=== PATIENT | male | born 1950 | race Caucasian/White ===

== ENCOUNTER 2022-11-20 22:27 | Inpatient (IN) | payer OTHER ==
[2022-11-20] MEDS ORDERED: NOREPINEPHRINE BITARTRATE/D5W 4 MG/250 ML BAG IV ONE (22:49)
[2022-11-20] MEDS ORDERED: NA CHLORIDE 0.9% 1,000 ML ONE (23:03)
[2022-11-20 23:08] LABS: Absolute Lymphocytes (CBC) 4.1 K/uL (0.7-4.9); Hematocrit 28.5 % (39.6-49.0); Lymphocytes % 42.4 % (15.3-44.8); MCV 101.5 fL (80-100); Protime INR 1.87; RBC Red Blood Cell Count 2.81 M/uL (4.33-5.43)
[2022-11-20] MEDS ORDERED: LIDOCAINE HCL JELLY 2% 6 ML SYRINGE TOP ONE (23:24)
[2022-11-20 23:34] LABS: Albumin 1.8 g/dL (3.4-5.0); Bilirubin Direct 0.2 mg/dL (0-0.2); Bilirubin Indirect, Calculated 0.2 mg/dL (0.2-0.8); Bilirubin Total 0.4 mg/dL (0.2-1.0); Magnesium 1.9 mg/dL (1.6-2.4); Potassium 3.8 mEq/L (3.5-5.1); Protein, Total 5.2 g/dL (6.4-8.2)
[2022-11-20 23:47] LABS: Blood Gas Oxyhemoglobin 97.5 % (94-97); Blood O2 Saturation 98.8 % (92-98.5)
--- NOTE | 2022-11-21 00:11 | EDPHYS ---
Physician Documentation [facility] Name: Wero Bardales Jr Age: 72 yrs Sex: Male : 1950 Arrival Date: 11/20/2022 Time: 22:27 Bed 4 Private MD: ED Physician Gabriel Maloney HPI: 11/20 23:05 This 72 yrs old Male presents to ER via EMS with complaints of CPR now with ROSC. sp3 23:05 72-year-old male with a history of hypertension, CHF, osteoporosis, prior kidney sp3 disease, skin cancer, renal mass now presents via EMS for syncope and unresponsiveness which led to CPR by bystander/family who then activated [facility]itent[facility] staff who activated EMS who started ACLS protocol and got ROSC presents to the ED intubated hypotensive and tachycardic. There was a total of 12 minutes of CPR by EMS and unknown total CPR time by bystanders. Patient received 2 rounds of epinephrine and no other cardiac/ACLS medications. No other history from EMS or bystanders or penitentiary available. History above is from prior encounter note in the EMR. Patient sees Dr. Saab for oncology. He was confirmed as a full code. History, physical and review of systems severely limited secondary to patient's state.. Historical: - Home Meds: 23:00 Unable to obtain [Active]; vc1 - PMHx: 23:00 Unable to Obtain; vc1 - PSHx: 23:00 Unable to Obtain; vc1 - Immunization history:: Unable to obtain. - Social history:: unknown. ROS: 23:07 Unable to obtain ROS due to obtunded state, patient is on ventilator. sp3 Exam: 23:07 Constitutional: The patient appears GCS is a 2T. No corneal reflexes noted. No sp3 purposeful movements noted. Pupils are dilated with minimal responsiveness at 4 mm. Lungs are coarse bilaterally. Heart sounds are normal and tachycardic. Skin is pale. Abdomen is nondistended. No significant skin rashes noted. Exam otherwise limited. 23:07 Abdomen/GI: Large surgical scars noted on the abdomen. Unknown prior surgery.. 23:07 Musculoskeletal/extremity: Intraosseous catheter in the left tibia placed by EMS.. 23:10 ECG was reviewed by the Attending Physician. EKG demonstrates 98 bpm with normal sp3 intervals, normal axis, widened QRS complex with incomplete right bundle branch block and ST elevations V1 through V4 with no reciprocal changes noted. No old EKG available. EKG performed rapidly during resuscitation and will be repeated. Vital Signs: 22:29 BP 64 / 48; Pulse 112; Resp 18 A; Temp 97(Ca); Pulse Ox 99% on 15 lpm ETT ambu; Weight vc1 40 kg (M); 23:00 BP 93 / 61; Pulse 95; Resp 18; Pulse Ox 99% ; vc1 23:15 BP 101 / 58 (auto/); Pulse 95 MON; Resp 18 A; Temp 96.6(Ca); Pulse Ox 99% on ETT vent; vc1 23:30 BP 87 / 69 (auto/); Pulse 87 MON; Resp 18 A; Temp 96.6(Ca); Pulse Ox 99% on ETT vent; vc1 23:45 BP 97 / 54 (auto/); Pulse 86 MON; Resp 18 A; Temp 95.8(Ca); Pulse Ox 100% on ETT vent; vc1 11/21 00:00 BP 104 / 64 (auto/); Pulse 93 MON; Resp 18 A; Temp 95.1(Ca); Pulse Ox 100% on ETT vent; vc1 00:15 BP 107 / 71 (auto/); Pulse 86 MON; Resp 18 A; Temp 95.1(Ca); Pulse Ox 100% on ETT vent; vc1 00:30 BP 116 / 91 (auto/); Pulse 97 MON; Resp 18 A; Temp 95.2(Ca); Pulse Ox 96% on ETT vent; vc1 00:45 BP 110 / 84 (auto/); Pulse 95 MON; Resp 18 A; Temp 95.1(Ca); Pulse Ox 98% on ETT vent; vc1 01:00 BP 126 / 80 (auto/); Pulse 115 MON; Resp 18 A; Temp 95.4(Ca); Pulse Ox 100% on ETT vent;vc1 01:15 BP 114 / 87 (auto/); Pulse 112 MON; Resp 18 A; Temp 95.7(Ca); Pulse Ox 100% on ETT vent;vc1 01:30 BP 118 / 75 (auto/); Pulse 115 MON; Resp 18 A; Temp 96.4(Ca); Pulse Ox 100% on ETT vent;vc1 01:45 BP 126 / 74 (auto/); Pulse 115 MON; Resp 19 A; Temp 96.6(Ca); Pulse Ox 100% on ETT vent;vc1 02:00 BP 121 / 82 (auto/); Pulse 112 AP; Resp 19 A; Temp 97.2(Ca); Pulse Ox 100% on ETT vent; vc1 02:15 BP 125 / 98 (auto/); Pulse 116 MON; Resp 20 A; Temp 97.4(Ca); Pulse Ox 100% on ETT vent;vc1 02:15 Life sustaining care withdrawn per family request vc1 Procedures: 00:04 Central Line: the site was prepped with Betadine, a triple lumen catheter was inserted, sp3 in the right internal jugular vein, in 2 attempts. placement was verified, by CXR, by blood return, the site was dressed with Tegaderm, using sterile technique, the patient tolerated the procedure, well. MDM: 11/20 23:01 Patient medically screened. sp3 23:12 Data reviewed: vital signs, nurses notes, EMS record, lab test result(s), EKG, sp3 radiologic studies. ED course: 72-year-old male with return of spontaneous circulation following witnessed collapse at [facility]. Patient has extensive past medical history including oncology history. Patient is a full code. Patient is currently on Levophed 5 mcg and normal saline with ventilatory support. All laboratory values, ABG, and chest x-ray are pending. A right internal jugular central venous catheter was placed by wy in sterile fashion using ultrasound guidance. We will attempt transfer to closest appropriate facility after initial review of laboratory values and further stabilization of patient.. 23:15 ED course: Chest x-ray reviewed after ET tube was pulled back to 23 cm at the teeth and sp3 right IJ placement. No pneumothorax is noted. IJ triple-lumen catheter is in appropriate position. There is mild cardiomegaly. Lungs otherwise clear for any infiltrates. There is no subdiaphragmatic air. No pleural effusion noted. No other bony abnormalities noted.. 23:45 ED course: Discussed with son who is now here. Patient is a DNR/DNI and penitentiary sp3 for some reason did not enforce dose or was not aware. If patient arrest again, we will not perform CPR. Laboratory values reviewed and demonstrate elevated troponin level and elevated BNP. I have discussed all of this with the patient's son who is power of transactional attorney and the current plan is to keep him on current treatment until family arrives tomorrow morning at which point the plan is most likely hospice with withdrawal of care. Patient is now having nonspecific movements and we will start propofol and increase Levophed as needed. There is also increased ectopy on the monitor and we will follow this as well.. 11/20 22:43 Order name: Basic Metabolic Panel; Complete Time: 23:39 11/20 22:43 Order name: CBC with Diff; Complete Time: 23:39 11/20 22:43 Order name: LFT's; Complete Time: 23:39 11/20 22:43 Order name: Magnesium; Complete Time: 23:39 11/20 22:43 Order name: NT PRO-BNP; Complete Time: 23:39 11/20 22:43 Order name: PT-INR; Complete Time: 23:44 11/20 22:43 Order name: Troponin HS; Complete Time: 23:39 11/20 22:57 Order name: Blood Culture Adult (2) [facility] 11/20 22:57 Order name: Lactate w/ 2H reflex if indic.; Complete Time: 23:56 [facility] 11/20 22:57 Order name: ABG; Complete Time: 23:56 [facility] 11/20 23:22 Order name: Creatine Phosphokinase; Complete Time: 23:39 EDGA 11/20 22:43 Order name: XRAY Chest (1 view) 11/20 22:43 Order name: EKG; Complete Time: 22:44 11/20 22:43 Order name: Cardiac monitoring; Complete Time: 22:50 11/20 22:43 Order name: EKG - Nurse/Tech; Complete Time: 22:49 11/20 22:43 Order name: IV Saline Lock; Complete Time: 22:50 11/20 22:43 Order name: Labs collected and sent; Complete Time: 22:50 11/20 22:43 Order name: O2 Per Protocol; Complete Time: 22:50 11/20 22:43 Order name: O2 Sat Monitoring; Complete Time: 22:50 Administered Medications: 11/21 03:19 Discontinued: Norepinephrine IV 0.1 mcg/kg/min IV at calculated rate every 5 minutes; kl (Standard concentration 4 mg / 250 mL D5W); Recommended max rate 3 mcg/kg/min; Titrate 0.05 mcg/kg/min as often as every 5 minutes to achieve goal (see titration policy); Goal parameter MAP greater than 65 mmHg. 03:19 Discontinued: Propofol IV 5 mcg/kg/min IV at calculated rate See Administration kl Instructions; Standard concentration 1000 mg / 100 mL; Recommended max rate 50 mcg/kg/min; Titrate 2 mcg/kg/min every 5 minutes to achieve goal (see titration policy); Goal parameter RASS score 0 to -2 11/20 23:00 Drug: Norepinephrine IV 0.1 mcg/kg/min {Note: verbal order initated at 5mcg/min.} kl Route: IV; Rate: calculated rate; Site: right upper arm; 11/21 01:00 Drug: Propofol IV 5 mcg/kg/min Route: IV; Rate: calculated rate; Site: right jugular; vc1 Disposition: 00:08 Critical Care:. sp3 Disposition Summary: 11/21/22 00:10 Hospitalization Ordered Hospitalization Status: Inpatient Admission sp3 Provider: Hayden Fleming sp3 Condition: Stable sp3 Problem: an acute exacerbation sp3 Symptoms: have worsened sp3 Bed/Room Type: Standard sp3 Location: Telemetry/MedSurg (Inpatient)(11/21/22 03:13) eb1 Room Assignment: [facility](11/21/22 03:13) eb1 Diagnosis - CPR, myocardial infarction, lactic acidosis, congestive heart failure, multiorgan sp3 dysfunction Forms: - Medication Reconciliation Form sp3 - SBAR form sp3 Critical care time excluding procedures: 00:08 Critical care time: Bedside Care: 20 minutes, Consultation: 10 minutes, Family sp3 Intervention: 20 minutes. Total time: 50 minutes Signatures: Dispatcher [employer] Elizabeth Metz RN RN Pedro Pablo West FNP-Madina WILLOW MACHINE OPERATOR-Radha Cartwright RN RN eb1 Gabriel Maloney MD MD sp3 Julieth Ronquillo RN RN vc1 Corrections: (The following items were deleted from the chart) 11/20 23:12 23:05 72-year-old male with a history of hypertension, CHF, osteoporosis, prior kidney sp3 disease, skin cancer, renal mass now presents via EMS for syncope and unresponsiveness which led to CPR by bystander/family who then activated [facility]itentiary staff who activated EMS who started ACLS protocol and got ROSC presents to the ED intubated hypotensive and tachycardic. No other history from EMS or bystanders or penitentiary available. History above is from prior encounter note in the EMR. Patient sees Dr. Saab for oncology. He was confirmed as a full code. History, physical and review of systems severely limited secondary to patient's state.. sp3 23:22 22:57 CREATINE PHOSPHOKINASE+C.LAB.BRZ ordered. EDMS EDMS 11/21 00:32 00:10 Intensive Care Unit sp3 eb1 00:32 00:10 sp3 eb1 03:13 00:32 [facility] ER HOLD eb1 eb1 03:13 00:32 ERHOLD- eb1 eb1
--- NOTE | 2022-11-21 00:11 | ER ---
Nurse's Notes [facility] Name: Wero Bardales Jr Age: 72 yrs Sex: Male : 1950 Arrival Date: 11/20/2022 Time: 22:27 Bed 4 Private MD: Diagnosis: CPR, myocardial infarction, lactic acidosis, congestive heart failure, multiorgan dysfunction Presentation: 11/20 22:29 Chief complaint: EMS states: sp CPR witnessed by patient brother bystander CPR kl inititiated per EMS 2 rounds of EPI coded x 12 minutes pt currently sinus tach 112. Coronavirus screen:. 22:29 Method Of Arrival: EMS: [facility] 22:29 Acuity: AGUSTO 1 22:29 Ebola Screen: Patient negative for fever greater than or equal to 101.5 degrees vc1 Fahrenheit, and additional compatible Ebola Virus Disease symptoms Patient denies exposure to infectious person. Patient denies travel to an Ebola-affected area in the 21 days before illness onset. No symptoms or risks identified at this time. Initial Sepsis Screen: Does the patient meet any 2 criteria? Systolic BP < 90 mmHg. Mean Arterial Pressure (MAP) < 65. Yes Does the patient have a suspected source of infection? No. Patient's initial sepsis screen is negative. Onset of symptoms was November 20, 2022 at 22:00. 23:01 Care prior to arrival: Oral intubation, CPR via thumper performed by bystander kl performed by EMS Medication(s) given: e[i x 2 IV initiated. IO left leg. 11/21 03:44 Risk Assessment: Do you want to hurt yourself or someone else? Unable to obtain. Triage Assessment: 11/20 22:29 General: Appears Behavior is unresponsive. Historical: - Home Meds: 23:00 Unable to obtain [Active]; vc1 - PMHx: 23:00 Unable to Obtain; vc1 - PSHx: 23:00 Unable to Obtain; vc1 - Immunization history:: Unable to obtain. - Social history:: unknown. Screenin:40 Abuse screen: Denies threats or abuse. Nutritional screening:. Tuberculosis screening: vc1 No symptoms or risk factors identified. Assessment: 23:00 Reassessment: No changes from previously documented assessment. vc1 23:00 Pain: Unable to use pain scale. Patient is unresponsive. Respiratory: Ventilator vc1 assessment: ET Tube: 22 cm at teeth. 11/21 00:00 Reassessment: No changes from previously documented assessment. General: Behavior is vc1 unresponsive. Neuro: Hodge Agitation-Sedation Scale (RASS): -5 Unarousable Level of Consciousness is unresponsive. 01:00 Reassessment: No changes from previously documented assessment. vc1 02:00 Reassessment: No changes from previously documented assessment. vc1 02:38 Reassessment: medicated with Ativan 2mg Morphine 4mg IVP pt extubated per patient kl medical power of estate attorney wishes will continue to monito family members at bedside. Vital Signs: 11/20 22:29 BP 64 / 48; Pulse 112; Resp 18 A; Temp 97(Ca); Pulse Ox 99% on 15 lpm ETT ambu; Weight vc1 40 kg (M); 23:00 BP 93 / 61; Pulse 95; Resp 18; Pulse Ox 99% ; vc1 23:15 BP 101 / 58 (auto/); Pulse 95 MON; Resp 18 A; Temp 96.6(Ca); Pulse Ox 99% on ETT vent; vc1 23:30 BP 87 / 69 (auto/); Pulse 87 MON; Resp 18 A; Temp 96.6(Ca); Pulse Ox 99% on ETT vent; vc1 23:45 BP 97 / 54 (auto/); Pulse 86 MON; Resp 18 A; Temp 95.8(Ca); Pulse Ox 100% on ETT vent; vc1 11/21 00:00 BP 104 / 64 (auto/); Pulse 93 MON; Resp 18 A; Temp 95.1(Ca); Pulse Ox 100% on ETT vent; vc1 00:15 BP 107 / 71 (auto/); Pulse 86 MON; Resp 18 A; Temp 95.1(Ca); Pulse Ox 100% on ETT vent; vc1 00:30 BP 116 / 91 (auto/); Pulse 97 MON; Resp 18 A; Temp 95.2(Ca); Pulse Ox 96% on ETT vent; vc1 00:45 BP 110 / 84 (auto/); Pulse 95 MON; Resp 18 A; Temp 95.1(Ca); Pulse Ox 98% on ETT vent; vc1 01:00 BP 126 / 80 (auto/); Pulse 115 MON; Resp 18 A; Temp 95.4(Ca); Pulse Ox 100% on ETT vent;vc1 01:15 BP 114 / 87 (auto/); Pulse 112 MON; Resp 18 A; Temp 95.7(Ca); Pulse Ox 100% on ETT vent;vc1 01:30 BP 118 / 75 (auto/); Pulse 115 MON; Resp 18 A; Temp 96.4(Ca); Pulse Ox 100% on ETT vent;vc1 01:45 BP 126 / 74 (auto/); Pulse 115 MON; Resp 19 A; Temp 96.6(Ca); Pulse Ox 100% on ETT vent;vc1 02:00 BP 121 / 82 (auto/); Pulse 112 AP; Resp 19 A; Temp 97.2(Ca); Pulse Ox 100% on ETT vent; vc1 02:15 BP 125 / 98 (auto/); Pulse 116 MON; Resp 20 A; Temp 97.4(Ca); Pulse Ox 100% on ETT vent;vc1 02:15 Life sustaining care withdrawn per family request vc1 ED Course: 11/20 22:29 Patient arrived in ED. rv1 22:29 Arm band placed on left wrist. vc1 22:58 Triage completed. kl 23:00 Inserted saline lock: 20 gauge in right upper arm, using aseptic technique. Blood vc1 collected. 23:00 Assisted provider with central line placement. Set up central line tray. Triple lumen vc1 line placed in right internal jugular. Line placed by Gabriel Maloney MD Placement verified by CXR, blood return, Dressed with Tegaderm, Blood was collected. Patient tolerated well. Was handwashing/sanitizing done immediately prior to procedure? Yes. Was patient positioned to in a way to prevent air embolism? Yes. Was procedure site sterilized? Yes, with chlorhexidine. and betadine. Was the site allowed to dry? Yes. Was local anesthetic and/or sedation utilized? Yes. During the procedure, did the Practitioner(s) maintain a sterile field? Yes. Were unused ports clamped during insertion? Yes. Was blood aspirated from each lumen? Yes. After the procedure, did the Practitioner(s) clean the site and apply a sterile dressing? Yes. 23:00 Patient has correct armband on for positive identification. Bed in low position. Side vc1 rails up X2. Client placed on continuous cardiac and pulse oximetry monitoring. NIBP monitoring applied. 23:01 Gabriel Maloney MD is Attending Physician. sp3 23:03 Troponin HS Sent. kl 23:03 PT-INR Sent. kl 23:03 NT PRO-BNP Sent. kl 23:03 Magnesium Sent. kl 23:03 LFT's Sent. kl 23:03 Basic Metabolic Panel Sent. kl 23:03 CBC with Diff Sent. kl 23:13 XRAY Chest (1 view) In Process Unspecified. EDMS 23:34 Julieth Ronquillo, TAMIKA is Primary Nurse. vc1 23:35 3-way catheter inserted, using sterile technique, 16 Fr. amador cath with temp NGT: vc1 verified placement of air over stomach, verified return of gastric contents, to intermittent suction. Returned bile. Patient tolerated well. OG tube inserted. 11/21 00:09 Hayden Fleming MD is Hospitalizing Provider. sp3 03:45 Patient admitted, IV remains in place. kl Administered Medications: 03:19 Discontinued: Norepinephrine IV 0.1 mcg/kg/min IV at calculated rate every 5 minutes; kl (Standard concentration 4 mg / 250 mL D5W); Recommended max rate 3 mcg/kg/min; Titrate 0.05 mcg/kg/min as often as every 5 minutes to achieve goal (see titration policy); Goal parameter MAP greater than 65 mmHg. 03:19 Discontinued: Propofol IV 5 mcg/kg/min IV at calculated rate See Administration kl Instructions; Standard concentration 1000 mg / 100 mL; Recommended max rate 50 mcg/kg/min; Titrate 2 mcg/kg/min every 5 minutes to achieve goal (see titration policy); Goal parameter RASS score 0 to -2 11/20 23:00 Drug: Norepinephrine IV 0.1 mcg/kg/min {Note: verbal order initated at 5mcg/min.} kl Route: IV; Rate: calculated rate; Site: right upper arm; 11/21 01:00 Drug: Propofol IV 5 mcg/kg/min Route: IV; Rate: calculated rate; Site: right jugular; vc1 Medication: 01:10 VIS not applicable for this client. vc1 Outcome: 00:10 Decision to Hospitalize by Provider. sp3 03:44 Admitted to Med/surg accompanied by tech, room 221, with chart, Report called to rhiannon barlow 03:44 Condition: unchanged 03:44 Discharge instructions given to family, Instructed on the need for admit, Demonstrated understanding of instructions. 03:51 Patient left the ED. rhiannon Signatures: Dispatcher [employer] EDElizabeth Goldstein, RN RN Gabriel Mccabe MD MD sp3 Julieth Ronquillo RN RN vc1 Hien Munoz rv1 Corrections: (The following items were deleted from the chart) 11/20 23:22 23:03 CREATINE PHOSPHOKINASE+C.LAB.BRZ drawn and sent. rhiannon EDFL 23:35 22:29 BP 64 / ???; Pulse 112bpm; Resp 18bpm; Assisted; Pulse Ox 99% 15 lpm ambu; Temp vc1 97F Catheter; 40 kg Measured; rhiannon
--- NOTE | 2022-11-21 00:35 | P.HP ---
Certification for Inpatient Patient admitted to: Inpatient With expected LOS: >2 Midnights Patient will require the following post-hospital care: None Practitioner: I am a practitioner with admitting privileges, knowledge of patient current condition, hospital course, and medical plan of care. Services: Services provided to patient in accordance with Admission requirements found in Title 42 Section 412.3 of the Code of Federal Regulations Patient History Date of Service: 11/21/22 Reason for admission: Cardiac Arrest History of Present Illness: 72-year-old male with history of severe systolic CHF, hypertension, CKD, history of renal mass presents emergency department status post cardiac arrest with ROSC. Patient was a resident of [facility], it was reported that he collapsed and a bystander performed CPR, upon EMS arrival patient was given epi, chest compressions, and was intubated. Patient regained a pulse prior to arrival to the emergency department he presented intubated with a pulse. He was significantly hypotensive, right IJ central line was placed by ED physician. His labs were significant for hemoglobin 8.9 hematocrit 28.5 creatinine 1.8 GFR 40 high-sensitivity troponin initially 202 BNP 10,207 ABG was performed pH 7.06 PCO2 44 PO2 555 HCO3 11.8. Patient's son arrived who is the patient's MPOA and informed us that it is a DNR/DNI in place and was currently on hospice at the custodial. Discussion was held among myself, the ER physician and the patient's son Laz Nesbitt talked with him and family stated they did not want additional aggressive measures, if his heart were to stop again they would not want additional CPR. They would like for us to keep him here at the hospital on the ventilator with vasopressors so family can come and be with him. They were offered transfer for higher level of care/CVICU/cardiology evaluation but declined admission, continue ventilator support, continue vasopressor therapy with plan to transition to inpatient hospice or withdraw care in the morning/when family arrives. - Past Medical/Surgical History -: CHF -: CKD -: Renal mass -: HTN -: OA Past Surgical History: Unable to obtain Psychosocial/ Personal History: Resident of [facility], previously on hospice. - Family History Family History: Reviewed- Non-Contributory - Social History Place of Residence: [facility] Review of Systems is unable to be obtained Physical Examination - Physical Exam General: Unresponsive HEENT: Atraumatic, PERRLA, Mucous membr. moist/pink, EOMI, Sclerae nonicteric Neck: Supple, 2+ carotid pulse no bruit, No LAD, Without JVD or thyroid abnormality Respiratory: Diminished Cardiovascular: Regular rate/rhythm, Normal S1 S2 Capillary refill: <2 Seconds Gastrointestinal: Normal bowel sounds, No tenderness Musculoskeletal: No tenderness Integumentary: No rashes Neurological: Other (Unresponvie on vent, occaisonal gagging) Lymphatics: No axilla or inguinal lymphadenopathy - Studies Laboratory Data (last 24 hrs) 11/20/22 22:20: PT 20.6 H, INR 1.87 11/20/22 22:20: WBC 9.60, Hgb 8.9 L, Hct 28.5 L, Plt Count 259 11/20/22 22:20: Sodium 133 L, Potassium 3.8, BUN 16, Creatinine 1.80 H, Glucose 184 H, Magnesium 1.9, Total Bilirubin 0.4, AST 86 H, ALT 52, Alkaline P hosphatase 99 Assessment and Plan - Plan Assessment: Cardiac arrest status post ROSC Chronic systolic congestive heart failure Lactic acidosis Hypertension Plan: Cardiac arrest status post ROSC Chronic systolic congestive heart failure Lactic acidosis Hypertension Patient was on hospice with DNR/DNI in place at [facility], it is unclear what led to him receiving resuscitation but he is now intubated vasopressors, he was intubated prior to arrival to the hospital. His family is at bedside, his son Laz is his medical power of food cart attendant. He states his father would never have wanted to be on machines to support his life, additional family members are coming to the hospital plan is for either withdrawal of care or transition to inpatient hospice in the morning. Case was discussed with cardiology upon patient's arrival to ED, he recommended transfer initially, transfer was offered to family/MPOA and they declined, plan is for conservative/comfort measures. DNR in place now, no further resuscitation will take place although we will continue current measures including vasopressor therapy, ventilator support for the time being. food services manager consult in place. DVT PPX:none Code status:dnr Discharge Plan: Other (inp. hosipce) Plan to discharge in: 24 Hours - Advance Directives Does patient have a Living Will: No Does patient have a Durable POA for Healthcare: No - Code Status/Comfort Care Code Status Assessed: Yes (DNR) Critical Care: No Time Spent Managing Pts Care (In Minutes): 70
[2022-11-21] MEDS ORDERED: propofoL 1,000 MG/100 ML VIAL IV ONE (00:58)
[2022-11-21] MEDS ORDERED: MORPHINE 4 MG/ML SYR IV PRN ×2 (01:46→03:39)
[2022-11-21] MEDS ORDERED: LORazepam 2 MG/ML VIAL IV PRN (01:46)
[2022-11-21] MEDS ORDERED: LORazepam 2 MG/ML VIAL ONE (02:35)
[2022-11-21] MEDS ORDERED: MORPHINE 4 MG/ML SYR ONE (02:36)
--- NOTE | 2022-11-21 03:17 | P.PN ---
Date of Service: 11/21/22 Family arrived at bedside and agreed to withdraw care. Medical power of estate attorney Laz at bedside. Withdrawal of care form completed. Patient was extubated by respiratory therapy, Levophed turned off. We will proceed with comfort measures only at this time. Likely transition to inpatient hospice in AM.
[2022-11-21] MEDS ORDERED: MORPHINE 4 MG/ML SYR IV ONE (04:10)
[2022-11-21] MEDS: LORazepam 2 MG/ML VIAL IV PRN ×3 (05:14→10:31)
[2022-11-21 05:50] VITALS: BMI 20.5
[2022-11-21 08:30] VITALS: BP 76/49; TEMP 99.8
[2022-11-21] MEDS ORDERED: HYDROMORPHONE HCL 1 MG/ML INJ IV ONE ×2 (08:36→09:00)
[2022-11-21 11:39] VITALS: O2SAT 90
--- NOTE | 2022-11-21 12:04 | P.SSS ---
Patient History Date of Service: 11/21/22 Reason for admission: Cardiac Arrest History of Present Illness: 72-year-old male patient was a hospice patient and facility who had a cardiac arrest episode and was intubated and sent to the emergency room. After review with family member he was extubated and made comfort measures only. Inpatient hospice was consulted. Patient was started on appropriate medication and he apparently had worsening clinical state and at 12 PM on November 21, 2022. Allergies Unable to Assess Allergy (Unverified 11/21/22 03:15) - Past Medical/Surgical History -: CHF -: CKD -: Renal mass -: HTN -: OA Psychosocial/ Personal History: Resident of [facility], previously on hospice. - Family History Family History: Reviewed- Non-Contributory - Social History Place of Residence: [facility] Physical Examination - Vital Signs Temperature: 99.8 F Blood Pressure: 76/49 Pulse: 126 Respirations: 20 Pulse Ox (%): 90 - Physical Exam Other Physical/Emotional Findings: Fixed pupils, no respiratory movement, no heart tones. - Studies Laboratory Data (last 24 hrs) 11/20/22 22:20: PT 20.6 H, INR 1.87 11/20/22 22:20: WBC 9.60, Hgb 8.9 L, Hct 28.5 L, Plt Count 259 11/20/22 22:20: Sodium 133 L, Potassium 3.8, BUN 16, Creatinine 1.80 H, Glucose 184 H, Magnesium 1.9, Total Bilirubin 0.4, AST 86 H, ALT 52, Alkaline Phosphatase 99 Treatment Summary: Patient at 12 PM on 21 Nov 2022. Plan: Informed family member ( they were at bedside). Transfer to [facility] – [place]. - Disposition Disposition: ROUTINE DISCHARGE
--- NOTE | 2022-11-21 12:31 | EKG ---
Test Date: 2022-11-20 Test Time: 23:20:14 Nicker: SUJATA MEASUREMENT RESULTS: Intervals: Rate: 92 TN: QRSD: 132 QT: 440 QTc: 544 [place]: P: TN: QRS: -71 T: 103 INTERPRETIVE STATEMENTS: Wide QRS rhythm with occasional premature ventricular complexes Left axis deviation Right bundle branch block Inferior infarct, age undetermined T wave abnormality, consider lateral ischemia Abnormal ECG Compared to ECG 11/20/2022 22:35:11 No significant changes Electronically Signed On 11-21-22 12:30:02 CDT by Len Aguilera
--- NOTE | 2022-11-21 12:31 | EKG ---
Test Date: 2022-11-20 Test Time: 22:35:11 Embedded Systems Designer: SUJATA MEASUREMENT RESULTS: Intervals: Rate: 98 ND: QRSD: 136 QT: 470 QTc: 600 [place]: P: ND: QRS: -44 T: 100 INTERPRETIVE STATEMENTS: Wide QRS rhythm with occasional premature ventricular complexes Left axis deviation Right bundle branch block Inferior infarct, age undetermined Anterior infarct, age undetermined T wave abnormality, consider lateral ischemia Abnormal ECG Compared to ECG 11/20/2022 22:32:21 Possible ischemia now present Left ventricular hypertrophy no longer present Early repolarization no longer present Myocardial infarct finding still present Electronically Signed On 11-21-22 12:30:43 CDT by Len Aguilera
--- NOTE | 2022-11-21 12:32 | EKG ---
Test Date: 2022-11-20 Test Time: 22:32:21 Field Attendant: SUJATA MEASUREMENT RESULTS: Intervals: Rate: 150 FL: 280 QRSD: 192 QT: 332 QTc: 524 [place]: P: 83 FL: 280 QRS: -78 T: 213 INTERPRETIVE STATEMENTS: junctional rhythm Left axis deviation Right bundle branch block Left ventricular hypertrophy with repolarization abnormality Inferior infarct, age undetermined Abnormal ECG Compared to ECG 08/08/1992 08:24:00 Left-axis deviation now present Right bundle-branch block now present Sinus rhythm no longer present Sinus arrhythmia no longer present Short FL interval no longer present Left bundle-branch block no longer present Electronically Signed On 11-21-22 12:31:36 CDT by Len Aguilera
--- NOTE | 2022-11-21 22:25 | RAD REPORT ---
EXAM DESCRIPTION: RAD - Chest Single View - 11/20/2022 11:11 pm Chest Single View CLINICAL HISTORY: Intubation TECHNIQUE: AP chest COMPARISON: None available for comparison FINDINGS: CHEST: ET tube at approximately 7 cm from the level of the tish. Right IJ line with the distal tip at the atriocaval junction. Cardiac silhouette is not enlarged. No airspace consolidation or pleural effusions. No pneumothorax. Pleural apical thickening. Interstitial prominence, which may be chronic. IMPRESSION: 1. ET tube at approximately 7 cm from the level of the tish. 2. Right IJ line with the distal tip at the atriocaval junction. 3. No acute cardiopulmonary process. Electronically signed by: Saul Maldonado MD 11/20/2022 11:22 PM CDT Due to temporary technical issues with the PACS/Fluency reporting system, reports are being signed by the in house radiologists without review as a courtesy to insure prompt reporting. The interpreting radiologist is fully responsible for the content of the report.
== END 2022-11-21 10:55 | disposition expired | DRG 208 ==
LOC: ER 22:27 → ERHOLD 11-21 00:10 → 2ND 11-21 03:24
PROVIDERS: ADMIT Internal Medicine Nephrology; ATTEND Internal Medicine Nephrology
PROC: 5A1935Z Respiratory Ventilation, Less than 24 Consecutive Hours (ICD-10-PCS; principal; 2022-11-20)
PROC: 0BH17EZ Insertion of Endotracheal Airway into Trachea, Via Natural or Artificial Opening (ICD-10-PCS; 2022-11-20)
PROC: 5A12012 Performance of Cardiac Output, Single, Manual (ICD-10-PCS; 2022-11-20)
PROC: 05HY33Z Insertion of Infusion Device into Upper Vein, Percutaneous Approach (ICD-10-PCS; 2022-11-21)
DX: J96.02 Acute respiratory failure with hypercapnia (principal); I21.4 Non-ST elevation (NSTEMI) myocardial infarction; N17.9 Acute kidney failure, unspecified; E87.20 Acidosis, unspecified; I50.22 Chronic systolic (congestive) heart failure; I13.0 Hypertensive heart and chronic kidney disease with heart failure and stage 1 through stage 4 chronic kidney disease, or unspecified chronic kidney disease; R57.0 Cardiogenic shock; N18.30 Chronic kidney disease, stage 3 unspecified; I46.9 Cardiac arrest, cause unspecified; M81.0 Age-related osteoporosis without current pathological fracture; Z66 Do not resuscitate; Z51.5 Encounter for palliative care; Z85.828 Personal history of other malignant neoplasm of skin
CPT/HCPCS: 36415; 71045; 80048; 80076; 82550; 82805; 83605; 83735; 83880; 84484; 85025; 85610; 87040; 93005; 94002; 99291; 99292; J1170; J2704; J7030